=== PATIENT | male | born 1985 | race Hispanic/Latino ===

== ENCOUNTER 2024-11-04 15:54 | Emergency (ER) | payer SELFPAY ==
--- NOTE | ~2024-11-04 | CT_ITS ---
EXAMINATION: CT lumbar spine wo con DATE: 11/04/2024 16:23 INDICATION: Lumbar radicular pain. TECHNIQUE: Computed tomography (CT) of the lumbar spine was performed without intravenous contrast. A utomated exposure control and iterative reconstruction technique were employed. The dose-length produ ct was 506.16 mGy-cm. COMPARISON: None FINDINGS: There is 6 degrees levocurvature of thoracic lumbar spine. Vertebral body heights are juan f l. There is mildly decreased disc height at T11-T12 and T12-L1, moderately decreased disc height at L 4-L5, and mildly decreased disc height at L5-S1. The following disc levels are specifically discussed : L1-L2: The disc does not extend beyond the endplate margin. There is mild bilateral facet joint osteo arthritis. There is no neural foraminal stenosis. There is no central canal stenosis. L2-L3: The disc does not extend beyond the endplate margin. There is mild bilateral facet joint osteo arthritis. There is no neural foraminal stenosis. There is no central canal stenosis. L3-L4: The disc is bulging. There is mild bilateral facet joint osteoarthritis. There is mild bilater al neural foraminal stenosis. There is mild central canal stenosis. L4-L5: The disc is bulging. There is mild bilateral facet joint osteoarthritis. There is moderate arcelia ateral neural foraminal stenosis. There is mild central canal stenosis. L5-S1: The disc is bulging. There is mild bilateral facet joint osteoarthritis. There is mild bilater al neural foraminal stenosis. There is mild central canal stenosis. IMPRESSION: 1. Moderate lumbar spondylosis, worst at L4-L5. Reviewed, dictated and finalized at location A. [facility]NEY
[2024-11-04 15:57] VITALS: BP 136/75; PULSE 87; RESP 20; TEMP 36.8; O2SAT 99
[2024-11-04] MEDS: ONDANSETRON INJ 4 MG/2 ML VIAL IV PUSH (16:32)
[2024-11-04] MEDS: KETOROLAC 30 MG/ML VIAL (*BKC) IV PUSH (16:34)
[2024-11-04] MEDS: dexAMETHasone SOD PHOS INJ 10 MG/ML 1 ML VIAL IV PUSH (16:36)
[2024-11-04] MEDS: MORPHINE SULFATE (*CRX) 4 MG/ML INJ IV PUSH (16:38)
[2024-11-04] MEDS: LORazepam INJ (*CRX) 2 MG/ML VIAL 0.5 MG IV PUSH (17:13)
[2024-11-04] MEDS: CYCLOBENZAPRINE HCL 10 MG TABLET PO (17:13)
[2024-11-04 17:17] VITALS: BP 138/60; PULSE 87; RESP 20; O2SAT 100
--- NOTE | 2024-11-04 17:40 | ED.BACK ---
HPI - Back Pain/Injury General Chief Complaint: Back Pain/Injury Stated Complaint: back pain Time Seen by Provider: 11/04/24 16:09 Source: patient Mode of arrival: ambulatory Limitations: language barrier History of Present Illness HPI Narrative: 39-year-old otherwise healthy here with a complaint of low back pain radiating into his right leg for last several days. 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 He denies any bladder or bowel incontinence MD elicited complaint: back pain Onset (ago): week(s) (2) Timing: constant Severity: moderate Quality: burning and aching Location: lumbar spine Radiation: right upper leg Exacerbating factors: none Relieving factors: none Related Data Allergies Allergy/AdvReac Type Severity Reaction Status Date / Time No Known Allergies Allergy Verified 11/04/24 15:55 Review of Systems Review of Systems: All systems reviewed & are unremarkable except as noted in HPI and below Constitutional: Constitutional: Reports no additional constitutional complaints Eyes: Eyes: Reports no additional eye complaints ENT: Reports system reviewed and no additional complaints, except as documented Cardiovascular: Cardiovascular: Reports no additional cardiovascular complaints Respiratory: Respiratory: Reports no additional respiratory complaints Gastrointestinal: Gastrointestinal: Reports no additional gastrointestinal complaints Musculoskeletal: Musculoskeletal: Reports as per HPI Neurologic: Reports system reviewed and no additional complaints, except as documented Exam Narrative: GENERAL: Well-appearing, well-nourished, and in no acute distress. HEAD: Normocephalic, atraumatic. EYES: PERRLA and EOMI. ENT: Nares clear, no rhinorrhea or epistaxis. Mucous membranes moist. NECK: Supple. CHEST: Clear to auscultation. No respiratory distress. HEART: Regular rate and rhythm. No murmur heard. Normal peripheral pulses. EXTREMITIES: Normal range of motion. No edema. SKIN: Warm, dry, no rash. NEURO: No focal deficits. Alert and oriented x3. PSYCH: Normal mood and affect. Course Course Emergency Course: Pain is slowly getting better after medication. Informed him and his about the CT findings. Advised him to take pain medication as prescribed, former primary doctor. Vital Signs Vital signs: Vital Signs Temperature 36.8 C 11/04/24 15:57 Pulse Rate 87 11/04/24 15:57 Respiratory Rate 20 11/04/24 15:57 Blood Pressure 136/75 11/04/24 15:57 Pulse Oximetry 99 11/04/24 15:57 Temperature 36.8 C 11/04/24 15:57 Pulse Rate 87 11/04/24 17:17 Respiratory Rate 20 11/04/24 17:17 Blood Pressure 138/60 11/04/24 17:17 Pulse Oximetry 100 11/04/24 17:17 MDM - Back Pain/Injury Differential Diagnosis Differential diagnosis: Likely lumbar radiculopathy, sciatica and strain of lumbar region Imaging Data Radiologist's impression: ITS Impressions Lumbar Spine CT 11/04/24 16:26 IMPRESSION: 1. Moderate lumbar spondylosis, worst at L4-L5. Discharge Plan Discharge Clinical Impression: Lumbar radiculopathy Spondylitis Qualifiers: Spinal region: lumbar Qualified Code(s): M46.96 - Unspecified inflammatory spondylopathy, lumbar region Patient Disposition: Home, Self-Care Condition: Stable Instructions: Lumbar Radiculopathy (ED) Patient Language: Maltese Prescriptions: New methylprednisolone [Medrol (Michael)] 4 mg tablets,dose pack See Rx Instructions .ROUTE .COMPLEX Qty: 21 0RF Rx Instructions: for 6 days cyclobenzaprine 5 mg tablet 5 mg PO TID PRN (Reason: muscle spasm) Qty: 30 0RF hydrocodone-acetaminophen 5-325 mg tablet 1 tablet PO Q8H PRN (Reason: pain) Qty: 14 0RF Follow-up/Referrals: PHYSICIAN,PACKAGING [employer]ACHINE [employer]PPLIES DISTRIBUTOR [Primary Care Provider] - Amanda Moon DO [Physician] - Time of Disposition: 17:47
[2024-11-04 18:00] VITALS: BP 116/86; PULSE 84; RESP 20; TEMP 37; O2SAT 96
== END 2024-11-04 18:17 | disposition home or self-care (01) ==
LOC: ANHED 18:05
PROVIDERS: Emergency Provider Family Medicine
DX: M54.16 Radiculopathy, lumbar region (principal); M46.96 Unspecified inflammatory spondylopathy, lumbar region
CPT/HCPCS: 72131; 96374; 96375; 99284; A9270; J1100; J1885; J2060; J2270; J2405